=== PATIENT | female | born 1970 | race Caucasian/White ===

== ENCOUNTER 2023-08-02 19:27 | Emergency (ER) | payer OTHER ==
[~2023-08-02] VITALS: Ht 162.6 cm; Wt 77.1 kg
[2023-08-02 19:36] VITALS: BP_SYST 179; PULSE 93; RESP 18; TEMP 97; O2SAT 99
[2023-08-02] MEDS: ACETAMINOPHEN 500 MG TABLET PO ONE (23:07)
[2023-08-02] MEDS: METOCLOPRAMIDE HCL 10 MG/2 ML VIAL IVP ONE (23:15)
[2023-08-02] MEDS: KETOROLAC TROMETHAMINE 30 MG VIAL IVP ONE (23:15)
[2023-08-02] MEDS ORDERED: iohexoL 350 mgI/mL, 100 ML INFUS..BTL IV ONE (23:22)
[2023-08-02 23:36] LABS: BASOPHILS % (AUTO) 0.7 % (0.0-2.0); EOSINOPHILS % (AUTO) 0.6 % (0.0-4.0); HEMATOCRIT 36.5 % (36-48); LYMPHOCYTES # (AUTO) 2.3 K/uL (1.0-5.5); LYMPHOCYTES % (AUTO) 48.2 % (20.5-51.5); MEAN CORPUSCULAR HEMOGLOBIN 32 pg (27-31); MEAN CORPUSCULAR HGB CONC 36 % (32-36); MEAN CORPUSCULAR VOLUME 89 fL (79.0-98.0); MONOCYTES # (AUTO) 0.3 K/uL (0.0-1.0); MONOCYTES % (AUTO) 5.4 % (1.7-9.3); NEUTROPHILS # (AUTO) 2.2 K/uL (1.8-7.7); NEUTROPHILS % (AUTO) 45.1 % (40.0-70.0); PLATELET COUNT (AUTO) 277 K/uL (130-430); RED BLOOD CELL COUNT(AUTO) 4.11 MIL/uL (4.2-6.2); RED CELL DISTRIBUTION WIDTH 13.7 % (9.0-15.0); WHITE BLOOD COUNT (AUTO) 4.8 K/uL (4.8-10.8)
[2023-08-02 23:56] LABS: ALANINE AMINOTRANSFERASE 26 U/L (12-78); ANION GAP 15 (5-15); ASPARTATE AMINOTRANSFERASE 7 U/L (10-37); CALCIUM 8.5 mg/dL (8.4-11.0); CARBON DIOXIDE 21 mmol/L (23-29); CHLORIDE 100 mmol/L (98-107); GFR AFRICAN AMERICAN 136 mL/min (>90); GLUCOSE 335 mg/dL (74-106); LIPASE 30 U/L (16-77); POTASSIUM 3.7 mmol/L (3.5-5.1); SODIUM SERUM 136 mmol/L (136-145); TOTAL BILIRUBIN 0.3 mg/dL (0.0-1.0); TOTAL PROTEIN, SERUM 6.8 g/dL (6.4-8.3); UREA NITROGEN, BLOOD 9 mg/dL (8-21)
[2023-08-02 23:57] LABS: GFR NON AFRICAN-AMERICAN 112 mL/min (>90)
[2023-08-03] MEDS: NS 500 ML IV ONE (01:37)
[2023-08-03 02:29] VITALS: BP_SYST 135; PULSE 94; RESP 18; TEMP 97; O2SAT 94
[2023-08-03] MEDS ORDERED: GASTROGRAFIN 120 ML ONE (03:10)
== END 2023-08-03 02:25 | disposition home or self-care (01) ==
LOC: SED 19:27
DX: R51.9 Headache, unspecified (principal); R42 Dizziness and giddiness; R11.0 Nausea; Z79.899 Other long term (current) drug therapy
CPT/HCPCS: 99291; 70496; 96374; 71045; 96375; 80053; 83690; 85025; 84484; 36415; 93005; 70498; 72125; 81025; 83605; 70450; 96361; Q9967; J1885; J2765; Q9963; J7030